=== PATIENT | male | born 1985 | race Caucasian/White ===

== ENCOUNTER → 2020-07-10 | Emergency (ER) | payer SELFPAY ==
[2020-07-10 12:58] VITALS: BP 126/82; PULSE 80
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
--- NOTE | 2020-07-10 13:46 | CR ---
INDICATION: Mass right index finger. COMPARISON: None. TECHNIQUE: Three-view study right index finger. FINDINGS: No evidence of fracture or dislocation. Soft tissue fullness anterior aspect involving the soft tissues proximal phalanx right index finger. No abnormal calcifications. No evidence of radiopaque foreign bodies. IMPRESSION: 1. No bony pathology name. 2. Soft tissue fullness overlying the proximal phalanx right index finger. Dictated by Rod Banks MD @ Jul 10 2020 1:42PM Signed by Dr. Rod Banks @ Jul 10 2020 1:43PM
== END | disposition home or self-care (01) ==
LOC: MW.ED 12:36
DX: R22.31 Localized swelling, mass and lump, right upper limb (principal)
CPT/HCPCS: 73140-26-F6; 73140-F6; 99282; 99283-25

== ENCOUNTER 2020-08-29 04:00 | Emergency (ER) | payer SELFPAY ==
[2020-08-29] MEDS ORDERED: Sodium Chloride 0.9% 10 ML Syringe FLUSH PRN (04:02)
[2020-08-29] MEDS ORDERED: Sodium Chloride 0.9% 2.5 ML Syringe FLUSH PRN (04:02)
[2020-08-29] MEDS ORDERED: Sodium Chloride 0.9% 1,000 ML IV ONE ×3 (04:02→05:45)
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
[2020-08-29 04:44] LABS: BLOOD UREA NITROGEN,BUN 21 mg/dL (7.0-18.0); CARBON DIOXIDE,CO2 20.8 mmol/L (21.0-32.0); CHLORIDE,CL 100 mmol/L (98-107); GLUCOSE RANDOM 154 mg/dL (74-106); POTASSIUM,K 3.4 mmol/L (3.5-5.1); SODIUM,NA 139 mmol/L (136-148)
--- NOTE | 2020-08-29 05:32 | CT ---
Indication: Altered mental status, drug abuse Technique: Nonenhanced axial CT imaging through the head. Sagittal and coronal reconstructions are provided. Comparison: None Findings: There is no intracranial hemorrhage, edema, or mass effect. There is normal attenuation of the brain parenchyma. The ventricles are normal in size. The basal cisterns are patent. The calvarium is intact. The visualized paranasal sinuses and mastoid air cells are aerated. A small lipoma as incidentally noted in the right parasagittal parietal scalp, measuring 2.3 cm in diameter and 0.5 cm in thickness Impression: No acute intracranial process. Please note that all CT scans at this facility use dose modulation, iterative reconstruction, and/or weight-based dosing when appropriate to reduce radiation dose to as low as reasonably achievable. Dictated by Sussy Storm MD @ Aug 29 2020 5:26AM Signed by Dr. Sussy Storm @ Aug 29 2020 5:29AM
--- NOTE | 2020-08-29 05:34 | CT ---
Indication: Intoxicated, possible fall Technique: Nonenhanced axial CT imaging through the cervical spine. Sagittal and coronal reconstructions are provided. Comparison: None Findings: The cervical vertebral bodies are normal in height. No fracture is demonstrated. There is normal spinal alignment. The atlantoaxial and atlantooccipital relationships are maintained. There is no prevertebral edema. The intervertebral disc spaces are normal in height. There is no significant narrowing of the spinal canal or neural foramina. Impression: No acute fracture or traumatic malalignment. Please note that all CT scans at this facility use dose modulation, iterative reconstruction, and/or weight-based dosing when appropriate to reduce radiation dose to as low as reasonably achievable. Dictated by Sussy Storm MD @ Aug 29 2020 5:29AM Signed by Dr. Sussy Storm @ Aug 29 2020 5:33AM
[2020-08-29 06:29] LABS: BLOOD UREA NITROGEN,BUN 17 mg/dL (7.0-18.0); CARBON DIOXIDE,CO2 24.6 mmol/L (21.0-32.0); CHLORIDE,CL 105 mmol/L (98-107); GLUCOSE RANDOM 119 mg/dL (74-106); POTASSIUM,K 3.5 mmol/L (3.5-5.1); SODIUM,NA 140 mmol/L (136-148)
[2020-08-29 06:45] VITALS: BP 129/72; PULSE 99
== END 2020-08-29 06:45 ==
LOC: MW.ED 04:00
DX: N17.9 Acute kidney failure, unspecified (principal); E86.0 Dehydration; F19.10 Other psychoactive substance abuse, uncomplicated
CPT/HCPCS: 36415; 70450; 72125; 80048; 80053; 80305; 80307; 81001; 82550; 83605; 83735; 84443; 84484; 85025; 93005; 99285; J7030; 93010; 99283

== ENCOUNTER 2020-09-23 09:44 | Emergency (ER) | payer SELFPAY ==
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
[2020-09-23] MEDS ORDERED: Diphtheria,Pertussis(Acell),Tetanus Vaccine 0.5 ML Syringe IM ONE (10:03)
[2020-09-23] MEDS ORDERED: Lidocaine 1% with EPINEPHrine 1:100,000 20 ML MDV INJECT ONE (10:07)
[2020-09-23 10:30] VITALS: BP 132/81; PULSE 85
== END 2020-09-23 10:30 | disposition home or self-care (01) ==
LOC: MW.ED 09:44
DX: S01.01XA Laceration without foreign body of scalp, initial encounter (principal); Z23 Encounter for immunization; W20.8XXA Other cause of strike by thrown, projected or falling object, initial encounter; Y99.0 Civilian activity done for income or pay
CPT/HCPCS: 12002; 90471; 90715; 99282; 99282-25

== ENCOUNTER 2020-09-30 16:44 | Emergency (ER) | payer SELFPAY ==
[2020-09-30 17:25] VITALS: BP 131/93; PULSE 132
== END 2020-09-30 17:35 | disposition left against medical advice (07) ==
LOC: MW.ED 16:44
DX: Z48.02 Encounter for removal of sutures (principal)
CPT/HCPCS: 99281